=== PATIENT | female | born 1945 | race Caucasian/White ===

== ENCOUNTER → 2024-03-16 13:12 | Outpatient (REF) | payer MEDICARE, OTHER, SELFPAY | LOC: HWRAD 13:12 | PROVIDERS: ATTENDING PHYSICIAN Physician Assistant Medical | DX: Z13.820 Encounter for screening for osteoporosis (principal); M25.511 Pain in right shoulder; M25.512 Pain in left shoulder; Z78.0 Asymptomatic menopausal state | CPT/HCPCS: 73030; 77080 ==

== ENCOUNTER → 2024-04-06 12:50 | Outpatient (REF) | payer MEDICARE, OTHER, SELFPAY | LOC: HWRAD 12:50 | PROVIDERS: ATTENDING PHYSICIAN Physician Assistant Medical | DX: F17.210 Nicotine dependence, cigarettes, uncomplicated (principal) | CPT/HCPCS: 71271 ==

== ENCOUNTER → 2024-04-13 12:01 | Outpatient (REF) | payer MEDICARE, OTHER, SELFPAY | LOC: HWRAD 12:01 | PROVIDERS: ATTENDING PHYSICIAN Physician Assistant Medical | DX: M25.562 Pain in left knee (principal) | CPT/HCPCS: 73564 ==

== ENCOUNTER → 2024-04-30 16:26 | Outpatient (REF) | payer MEDICARE, OTHER, SELFPAY | LOC: PAVMRI 16:26 | PROVIDERS: ATTENDING PHYSICIAN Physician Assistant Medical | DX: M25.562 Pain in left knee (principal); G89.29 Other chronic pain | CPT/HCPCS: 73721 ==